=== PATIENT | male | born 1960 | race Caucasian/White ===

== ENCOUNTER 2022-12-23 15:19 | Outpatient (REF) | payer OTHER, SELFPAY ==
--- NOTE | 2022-12-23 15:00 | ORMUBX_PTH ---
PATIENT: Riley Olsen LOC: [facility] U#:[id number] AGE/SX: 62/M ROOM: RE12/23/[address]: Keven Leonard MD : 1960 BED: DIS: 12/23/2022 SPEC #: [id number] RECD: 12/24/22 12:28 STATUS: CINDY REQ #: [id number] ROBBIE: 12/23/22 15:[address]: Keven Leonard DEPT: Surgical Specimen RECD BY: Carol Gonzalez ENTERED: 12/24/22 12:31 SP TYPE: ORMUBX OTHR DR: Harjinder Cline MD Tissues: 2 - MUCOSA, NOS Procedures: SPECIAL STAIN 2 GROSS AND MICRO LEVEL 4 Comments: [id number]
== END 2022-12-23 15:20 | disposition home or self-care (01) ==
LOC: LBN 15:19
PROVIDERS: PCP Family Medicine; Visit Provider Otolaryngology
DX: K11.6 Mucocele of salivary gland (principal); K11.8 Other diseases of salivary glands
CPT/HCPCS: 88305; 88313

== ENCOUNTER 2023-09-22 16:24 | Outpatient (REF) | payer OTHER, SELFPAY ==
--- NOTE | 2023-09-22 11:45 | SKI_PTH ---
PATIENT: Riley Olsen LOC: [facility] U#:[id number] AGE/SX: 63/M ROOM: RE09/22/[address]: Keven Leonard MD : 1960 BED: DIS: 09/22/2023 SPEC #: [id number] RECD: 09/22/23 17:47 STATUS: CINDY REMile #: [id number] ROBBIE: 09/22/23 11:[address]: Keven Leonard DEPT: Surgical Specimen RECD BY: Carol Gonzalez ENTERED: 09/22/23 17:48 SP TYPE: MALLORY OT DR: Harjinder Cline MD Tissues: 1 - SKIN BIOPSY(SHAVE/PUNCH) Procedures: SKIN LEVEL 4 Comments: [id number]
== END 2023-09-22 16:25 | disposition home or self-care (01) ==
LOC: LBN 16:24
PROVIDERS: PCP Family Medicine; Visit Provider Otolaryngology
DX: L98.9 Disorder of the skin and subcutaneous tissue, unspecified (principal); H61.002 Unspecified perichondritis of left external ear
CPT/HCPCS: 88305

== ENCOUNTER 2025-06-07 17:33 | Outpatient (REF) | payer BC, SELFPAY ==
--- NOTE | 2025-06-07 11:05 | SKI_PTH ---
PATIENT: Riley Olsen LOC: [facility] U#:[id number] AGE/SX: 64/M ROOM: RE06/07/[address]: Keven Leonard MD : 1960 BED: DIS: 06/07/2025 SPEC #: [id number] RECD: 06/07/25 17:44 STATUS: CINDY REMile #: [id number] ROBBIE: 06/07/25 11:[address]: Keven Leonard DEPT: Surgical Specimen RECD BY: Carol Gonzalez ENTERED: 06/07/25 17:45 SP TYPE: SKI OTHR DR: Harjinder Cline MD Tissues: 1 - SKIN BIOPSY(SHAVE/PUNCH) Procedures: SKIN LEVEL 4 Comments: [id number]
== END 2025-06-07 17:34 | disposition home or self-care (01) ==
LOC: LBN 17:33
PROVIDERS: PCP Family Medicine; Visit Provider Otolaryngology
DX: L85.8 Other specified epidermal thickening (principal)
CPT/HCPCS: 88305